=== PATIENT | male | born 1980 | race Caucasian/White ===

== ENCOUNTER 2018-07-24 10:47 | Emergency (ER) | payer OTHER ==
[~2018-07-24] VITALS: Ht 177.8 cm; Wt 99.8 kg
[2018-07-24] MEDS ORDERED: ASPIRIN500 MG (10:53)
== END 2018-07-24 18:41 | disposition home or self-care (01) ==
LOC: ER 10:47 → EDBD 11:16 → ER 11:16
DX: S50.12XA Contusion of left forearm, initial encounter (principal); S63.592A Other specified sprain of left wrist, initial encounter; L03.818 Cellulitis of other sites; W18.09XA Striking against other object with subsequent fall, initial encounter; Y93.89 Activity, other specified; Y92.488 Other paved roadways as the place of occurrence of the external cause; Y99.8 Other external cause status